=== PATIENT | female | born 1955 | race Caucasian/White ===

== ENCOUNTER 2019-12-12 11:14 | Emergency (ER) | payer OTHER ==
[2019-12-12] MEDS ORDERED: ONDANSETRON 4 MG/2 ML VIAL ONE (12:20)
[2019-12-12] MEDS ORDERED: MORPHINE 4 MG/ML SYR ONE (12:20)
--- NOTE | 2019-12-12 12:27 | RAD REPORT ---
EXAM DESCRIPTION: RAD - Wrist Left 3 View - 12/12/2019 12:21 pm CLINICAL HISTORY: Pain;Deformity Pain COMPARISON: No comparisons FINDINGS: Bones are mildly demineralized. Fracture of the distal radial and ulnar metaphysis these is seen. A styloid avulsion fracture is also present. The distal fracture fragments appear moderately dorsally angulated.
[2019-12-12] MEDS ORDERED: FENTANYL CITR 100 MCG/2 ML ONE (13:21)
[2019-12-12] MEDS ORDERED: propofoL 200 MG/20 ML VIAL IV ONE (13:22)
--- NOTE | 2019-12-12 14:31 | ER ---
Nurse's Notes [facility] Name: Vandana Soriano Age: 64 yrs Sex: Female : 1955 Arrival Date: 12/12/2019 Time: 11:16 Bed 7 Private MD: Cornelius Wiseman R Diagnosis: Distal left radius and ulnar fracture, closed, reduced Presentation: 12/11 11:50 Chief complaint: Patient states: was crushing a box and got her foot stuck in the box , iw fell back and injured her left wrist, no other injuries noted. Coronavirus screen: Proceed with normal triage. Patient denies a cough. Patient denies shortness of breath or difficulty breathing. Patient denies measured and/or subjective temperature greater than 100.4F prior to today's visit. Patient denies travel on a cruise ship or to a country the [facility] currently lists as an affected area. Patient denies contact with known and/or suspected case of COVID-19. Ebola Screen: Patient negative for fever greater than or equal to 101.5 degrees Fahrenheit, and additional compatible Ebola Virus Disease symptoms Patient denies exposure to infectious person. Patient denies travel to an Ebola-affected area in the 21 days before illness onset. No symptoms or risks identified at this time. Initial Sepsis Screen: Does the patient meet any 2 criteria? No. Patient's initial sepsis screen is negative. Does the patient have a suspected source of infection? No. Patient's initial sepsis screen is negative. Risk Assessment: Do you want to hurt yourself or someone else? Patient reports no desire to harm self or others. Onset of symptoms was December 12, 2019. 11:50 Method Of Arrival: Ambulatory iw 11:50 Acuity: LOIS 3 iw Historical: - Allergies: 11:53 No Known Allergies; iw - Home Meds: 11:53 unknown BP medicine [Active]; iw - PMHx: 11:53 Hypertension; iw - PSHx: 11:53 Tonsillectomy; ; cyst; iw - Immunization history:: Adult Immunizations not up to date. - Social history:: Smoking status: . Screenin:15 Abuse screen: Denies threats or abuse. Nutritional screening: No deficits noted. aa5 Tuberculosis screening: No symptoms or risk factors identified. Fall Risk Fall in past 12 months (25 points). IV access (20 points). Total Shah Fall Scale indicates High Risk Score (45 or more points). Fall prevention measures have been instituted. Side Rails Up X 2 Placed Close to Nursing Station. Assessment: 12:00 General: Appears uncomfortable, Behavior is calm, cooperative. Pain: Complains of pain aa5 in left wrist Pain does not radiate. Pain currently is 10 out of 10 on a pain scale. Quality of pain is described as burning, Pain began post fall. Denies head injury, denies LOC. Is continuous. Neuro: Level of Consciousness is awake, alert, obeys commands, Oriented to person, place, time, situation. Cardiovascular: Patient's skin is warm and dry. Respiratory: Airway is patent Respiratory effort is even, unlabored, Respiratory pattern is regular, symmetrical. GI: No signs and/or symptoms were reported involving the gastrointestinal system. : No signs and/or symptoms were reported regarding the genitourinary system. EENT: No signs and/or symptoms were reported regarding the EENT system. Derm: Skin is pink, warm \T\ dry. Musculoskeletal: Bony deformity noted of left wrist. 13:40 Reassessment: Conscious sedation consent signed by patient (see pt's chart) . aa5 13:46 Reassessment: Pt's O2 sat decreased to 84% RA during conscious sedation, Non-rebreather aa5 mask applied and O2 sat now 100%. . 13:58 Reassessment: Pt sleepy but easy to awake to verbal stimuli, pt is alert and oriented x aa5 4, equal and unlabored respirations, skin is pink/warm/dry. NSR on monitor.. 14:20 Reassessment: x-ray at bedside . aa5 15:02 Neuro: Level of Consciousness is awake, alert, obeys commands, Oriented to person, ls4 place, time, situation. Musculoskeletal: Circulation, motion, and sensation intact. Capillary refill < 3 seconds, Range of motion: limited in left wrist and left arm CMS INTACT DISTAL TO INJURY. Vital Signs: 11:50 BP 122 / 76; Pulse 85; Resp 16; Temp 97.1; Pulse Ox 99% on R/A; Weight 61.23 kg; Height iw 5 ft. 2 in. (157.48 cm); Pain 10/10; 13:00 BP 134 / 76; Pulse 64; Resp 16 S; Temp 98.0(TE); Pulse Ox 100% on R/A; aa5 13:58 BP 123 / 77; Pulse 68; Resp 16 S; Pulse Ox 100% on 2 lpm NC; aa5 14:58 BP 139 / 72; Pulse 79; Resp 14; Temp 98.1; Pulse Ox 100% on R/A; Pain 3/10; ls4 15:31 BP 138 / 63; Pulse 71; Resp 14; Temp 98.0(O); Pulse Ox 100% on R/A; Pain 3/10; ls4 11:50 Body Mass Index 24.69 (61.23 kg, 157.48 cm) iw ED Course: 11:16 Patient arrived in ED. ag5 11:16 Adam Machuca MD is Attending Physician. kdr 11:16 Cornelius Wiseman MD is Private Physician. ag5 11:52 Triage completed. iw 11:53 Arm band placed on. iw 12:00 Patient has correct armband on for positive identification. Bed in low position. Call aa5 light in reach. Side rails up X2. Pulse ox on. NIBP on. 12:03 Lanny Hartley RN is Primary Nurse. aa5 12:13 Inserted saline lock: 22 gauge in right antecubital area, using aseptic technique. aa5 12:23 Wrist Left (3 View) XRAY In Process Unspecified. EDMS 13:30 panel monitor on. aa5 14:00 Assist provider with reduction of left wrist using manipulation, Set up for procedure. aa5 Performed by Adam Machuca MD Immobilized with Volar splint Patient tolerated well. Conscious sedation (see Conscious sedation flow sheet). 14:05 Report given to ANNIA Lopez. aa5 14:24 Wrist Left (2 View) XRAY In Process Unspecified. EDMS 14:29 Torres Wills MD is Referral Physician. kdr 15:32 IV discontinued, intact, bleeding controlled, No redness/swelling at site. Pressure ls4 dressing applied. Administered Medications: 12:16 Drug: Zofran (Ondansetron) 4 mg Route: IVP; Site: right antecubital; aa5 12:18 Drug: morphine 4 mg Route: IVP; Site: right antecubital; aa5 13:42 Drug: fentaNYL (PF) 25 mcg {Note: see concious sedation flow sheet .} Route: IVP; Site: aa5 right antecubital; 14:10 Follow up: Response: No adverse reaction; Marked relief of symptoms ls4 13:44 Drug: Propofol 60 mg {Note: administered by Dr. Machuca (see conscious sedation flow aa5 sheet).} Route: IVP; Site: right antecubital; 15:03 Follow up: Response: No adverse reaction ls4 Outcome: 14:30 Discharge ordered by . kdr 15:32 Discharged to home via wheelchair, with family. ls4 15:32 Condition: good 15:32 Discharge instructions given to patient, Instructed on discharge instructions, follow up and referral plans. medication usage, safety practices, Demonstrated understanding of instructions, follow-up care, medications, Prescriptions given X 1. 15:32 Patient left the ED. ls4 Signatures: Dispatcher [employer] EDMS Adam Machuca MD MD kdr Williams, Irene, RN RN iw Lanny Hartley RN RN aa5 Jessica Waller RN RN ls4 Dejan Fried ag5 Corrections: (The following items were deleted from the chart) 11:53 11:50 Acuity: LOIS 4 iw iw 12:20 12:12 morphine 4 mg IVP in right antecubital aa5 aa5 12:20 12:12 Zofran (Ondansetron) 4 mg IVP in right antecubital aa5 aa5 12:20 12:20 Inserted saline lock: 22 gauge in right antecubital area, using aseptic aa5 technique. aa5 12:20 12:10 Inserted saline lock: 22 gauge in right antecubital area, using aseptic aa5 technique. aa5
--- NOTE | 2019-12-12 14:31 | EDPHYS ---
Physician Documentation [facility] Name: Vandana Soriano Age: 64 yrs Sex: Female : 1955 Arrival Date: 12/12/2019 Time: 11:16 Bed 7 Private MD: Cornelius Wiseman R ED Physician Adam Machuca HPI: 12/11 11:55 This 64 yrs old Female presents to ER via Ambulatory with complaints of Fall kdr Injury, Wrist Injury. 11:55 Details of fall: The patient fell from an upright position, while standing, while kdr walking. Onset: The symptoms/episode began/occurred suddenly, just prior to arrival. Associated injuries: The patient sustained Left wrist. Severity of symptoms: At their worst the symptoms were mild, moderate, in the emergency department the symptoms are unchanged. The patient has not experienced similar symptoms in the past. The patient has not recently seen a physician. Historical: - Allergies: 11:53 No Known Allergies; iw - Home Meds: 11:53 unknown BP medicine [Active]; iw - PMHx: 11:53 Hypertension; iw - PSHx: 11:53 Tonsillectomy; ; cyst; iw - Immunization history:: Adult Immunizations not up to date. - Social history:: Smoking status: . ROS: 11:55 Constitutional: Negative for fever, chills, and weight loss, Eyes: Negative for injury, kdr pain, redness, and discharge, ENT: Negative for injury, pain, and discharge, Neck: Negative for injury, pain, and swelling, Cardiovascular: Negative for chest pain, palpitations, and edema, Respiratory: Negative for shortness of breath, cough, wheezing, and pleuritic chest pain, Abdomen/GI: Negative for abdominal pain, nausea, vomiting, diarrhea, and constipation, Back: Negative for injury and pain, : Negative for injury, bleeding, discharge, and swelling, Skin: Negative for injury, rash, and discoloration, Neuro: Negative for headache, weakness, numbness, tingling, and seizure activity. Psych: Negative for depression, anxiety, suicide ideation, homicidal ideation, and hallucinations, Allergy/Immunology: Negative for hives, rash, and allergies, Endocrine: Negative for neck swelling, polydipsia, polyuria, polyphagia, and marked weight changes, Hematologic/Lymphatic: Negative for swollen nodes, abnormal bleeding, and unusual bruising. 11:55 MS/extremity: Positive for injury or acute deformity, decreased range of motion, pain, swelling, tenderness, of the left wrist. Exam: 11:55 Constitutional: This is a well developed, well nourished patient who is awake, alert, kdr and in no acute distress. 11:55 Musculoskeletal/extremity: ROM: limited active range of motion, limited passive range of motion, in the left wrist, limited active range of motion due to pain, limited passive range of motion due to pain, Circulation is intact in all extremities. Sensation intact. Joints: All joints are normal except the left wrist displays deformity, limited range of motion, pain at rest, painful range of motion, swelling, tenderness. Vital Signs: 11:50 BP 122 / 76; Pulse 85; Resp 16; Temp 97.1; Pulse Ox 99% on R/A; Weight 61.23 kg; Height iw 5 ft. 2 in. (157.48 cm); Pain 10/10; 13:00 BP 134 / 76; Pulse 64; Resp 16 S; Temp 98.0(TE); Pulse Ox 100% on R/A; aa5 13:58 BP 123 / 77; Pulse 68; Resp 16 S; Pulse Ox 100% on 2 lpm NC; aa5 14:58 BP 139 / 72; Pulse 79; Resp 14; Temp 98.1; Pulse Ox 100% on R/A; Pain 3/10; ls4 15:31 BP 138 / 63; Pulse 71; Resp 14; Temp 98.0(O); Pulse Ox 100% on R/A; Pain 3/10; ls4 11:50 Body Mass Index 24.69 (61.23 kg, 157.48 cm) iw MDM: 14:30 Patient medically screened. kdr 15:38 Data reviewed: vital signs, nurses notes, lab test result(s), radiologic studies. kdr Counseling: I had a detailed discussion with the patient and/or guardian regarding: the historical points, exam findings, and any diagnostic results supporting the discharge/admit diagnosis, radiology results, the need for outpatient follow up. 12/11 11:53 Order name: Wrist Left (3 View) XRAY; Complete Time: 15:33 kdr 12/11 14:08 Order name: Wrist Left (2 View) XRAY; Complete Time: 15:33 kdr 12/11 11:53 Order name: Volar Wrist Splint; Complete Time: 14:07 kdr 12/11 12:13 Order name: IV; Complete Time: 12:13 bp 12/11 14:09 Order name: Conscious Sedation; Complete Time: 14:08 aa5 Administered Medications: 12:16 Drug: Zofran (Ondansetron) 4 mg Route: IVP; Site: right antecubital; aa5 12:18 Drug: morphine 4 mg Route: IVP; Site: right antecubital; aa5 13:42 Drug: fentaNYL (PF) 25 mcg {Note: see concious sedation flow sheet .} Route: IVP; Site: aa5 right antecubital; 14:10 Follow up: Response: No adverse reaction; Marked relief of symptoms ls4 13:44 Drug: Propofol 60 mg {Note: administered by Dr. Machuca (see conscious sedation flow aa5 sheet).} Route: IVP; Site: right antecubital; 15:03 Follow up: Response: No adverse reaction ls4 Disposition: 12/12/19 14:30 Discharged to Home. Impression: Distal left radius and ulnar fracture, closed, reduced. - Condition is Stable. - Discharge Instructions: Forearm Fracture, Lice-xx-Byqu. - Prescriptions for Tylenol- Codeine #3 300-30 mg Oral Tablet - take 2 tablets by ORAL route every 6 hours As needed Take one or two tabs PO as needed for pain; 16 tablet. - Medication Reconciliation Form, Thank You Letter, Prescription Opioid Use form. - Follow up: Torres Wills MD; When: 1 - 2 days; Reason: If symptoms return, Further diagnostic work-up, Recheck today's complaints, Continuance of care, Re-evaluation by your physician. - Problem is new. - Symptoms have improved. Signatures: Dispatcher [employer] EDMS Adam Machuca MD MD kdr Williams, Irene, RN RN iw Lanny Hartley RN RN aa5 Ney Buenrostro RN RN bp Jessica Waller, RN RN ls4 Corrections: (The following items were deleted from the chart) 15:31 14:30 12/12/2019 14:30 Discharged to Home. Impression: Distal left radius and ulnar ls4 fracture, closed, reduced. Condition is Stable. Forms are Medication Reconciliation Form, Thank You Letter, Antibiotic Education, Prescription Opioid Use. Follow up: Torres Wills; When: 1 - 2 days; Reason: If symptoms return, Further diagnostic work-up, Recheck today's complaints, Continuance of care, Re-evaluation by your physician. Problem is new. Symptoms have improved. kdr 15:32 15:31 12/12/2019 14:30 Discharged to Home. Impression: Distal left radius and ulnar ls4 fracture, closed, reduced. Condition is Stable. Discharge Instructions: Forearm Fracture, [id number]-Qonz. Prescriptions for Tylenol-Codeine #3 300-30 mg Oral Tablet - take 2 tablets by ORAL route every 6 hours As needed Take one or two tabs PO as needed for pain; 16 tablet. and Forms are Medication Reconciliation Form, Thank You Letter, Prescription Opioid Use. Follow up: Torres Wills; When: 1 - 2 days; Reason: If symptoms return, Further diagnostic work-up, Recheck today's complaints, Continuance of care, Re-evaluation by your physician. Problem is new. Symptoms have improved. ls4
--- NOTE | 2019-12-12 14:35 | RAD REPORT ---
EXAM DESCRIPTION: RAD - Wrist Left 2 View - 12/12/2019 2:23 pm CLINICAL HISTORY: Radial fracture FINDINGS: A splint immobilizes previously described fractures of the distal radius and ulna
[2019-12-12 15:39] VITALS: O2SAT 100
[2019-12-12 15:43] VITALS: BP 138/63; TEMP 98
== END 2019-12-12 15:32 | disposition home or self-care (01) ==
LOC: ER 11:14
PROC: 0PSJXZZ Reposition Left Radius, External Approach (ICD-10-PCS; principal; 2019-12-12)
PROC: 0PSLXZZ Reposition Left Ulna, External Approach (ICD-10-PCS; 2019-12-12)
DX: S52.92XA Unspecified fracture of left forearm, initial encounter for closed fracture (principal); S52.202A Unspecified fracture of shaft of left ulna, initial encounter for closed fracture; W19.XXXA Unspecified fall, initial encounter; Y93.01 Activity, walking, marching and hiking; Y92.9 Unspecified place or not applicable; I10 Essential (primary) hypertension
CPT/HCPCS: 73110; 73100; 96375; 96374; 99285; 25415; J2704; J3010; J2405

== ENCOUNTER 2024-07-28 19:13 | Emergency (ER) | payer OTHER ==
--- OUTSIDE RECORDS SUMMARY | 2024-07-28 19:16 | XMS REPORT | Continuity of Care Document ---
Author Name Unknown Address [address] [place] [address] [facility] [address] [place] [address] Care Team Providers Care Hydraulic Press Operator Name Role Phone GI FREY Primary Care Physician Kristel chantelle Wills MD, Pedro Torres Attending Clinician [phone] PEDRO WILLS Attending Clinician Bettie martin Doctor Unassigned, [place] Attending Clinician U gia Nurse, [facility] General Surgery Attending Clinician U gia Wills MD, Pedro Torres Admitting Clinician [phone] PEDRO WILLS Admitting Clinician Bettie martin Payers Payer Name Policy Type Policy Number Effective Date Expirati on Date Source Allergies, Adverse Reactions, Alerts Allergy Name Allergy Type Status Severity Reaction(s) Onset Date Inactive Date Treating Clinician Comments Source NO KNOWN ALLERGIE S Drug Class Active [facility] Social History Social Habit Start Date Stop Date Quantity Comments Source History SDOH Alcohol Std Drinks [facility] History SDOH Alcohol Binge [facility] Sex Assigned At [facility] Exposure to SARS-CoV-2 (event) Not sure [facility] Alcohol intake 2019-12-17 00:00:00 2019-12-17 00:00:00 [facility] History SDOH Alcohol Frequency 2019-12-17 00:00:00 2019-12-17 00:00:00 1 [facility] Smoking Status Start Date Stop Date Source Former smoker 2019-12-17 00:00:00 2019-12-17 00:00:00 [facility] Medications Ordered Medication Name Filled Medication Name Start Date Stop Date Current Medication? Ordering Clinician Indication Dosage Frequency Signature (SIG) Comments Components Source olmesartan 40 mg tablet 12-19 16:09: 58 Yes 40mg Take 40 mg by mouth daily. [facility] vitamin C with kp hips (VITAMIN C) 1,000 mg tablet 12-19 16:09: 58 Yes 2000mg Take 2,000 mg by mouth daily. [facility] mv-min/iron /folic/calc ium/vitK (WOMEN'S 50 PLUS MULTIVIT-IR ON ORAL) 12-19 16:09: 58 Yes 1{tbl} Take 1 tablet by mouth daily. [facility] acetaminoph en (TYLENOL EXTRA STRENGTH) 500 mg tablet 12-19 16:09: 58 Yes 500mg Take 500 mg by mouth every 6 (six) hours as needed for Pain. [facility] acetaminoph en with codeine (TYLENOL-CO DEINE #3 ORAL) 12-19 16:09: 58 Yes 1{tbl} Take 1 tablet by mouth every 6 (six) hours as needed for Pain (scale 4-6). [facility] FENTanyl PF (SUBLIMAZE (PF)) injection 25 mcg 12-18 19:19: 28 Yes 25ug 25 mcg, Slow IV Push, Q5MIN PRN, 4 doses, Starting Tue12/19/19 at 1419, Until Discontinu ed, Routine, Pain (scale 4-6), PACU [facility] ondansetron (ZOFRAN (PF)) injection 4 mg 12-18 19:19: 28 12-18 19:28 :00 No 4mg 4 mg, Slow IV Push, PRN, 1 dose, Starting Tue12/19/19 at 1419, Until Tue12/19/19 at 1428, Routine, Nausea and Vomiting (N/V), PACU [facility] lactated ringers IV infusion 1,000 mL 12-18 15:45: 00 12-18 15:33 :00 No 1000mL at 20 mL/hr, 1,000 mL, IV Infusion, ONCE, 1 dose, Tue12/19/19 at 1045, Routine, DSU Pre-op [facility] ceFAZolin (ANCEF) 1,000 mg in NaCl 0.9% (NS) 50 mL MINI-BAG 12-18 15:33: 30 Yes 1000mg 1,000 mg, IV Piggyback, O.R. HOLDING ONCE, 1 dose, Starting Tue12/19/19 at 1033, Until Discontinu ed, 50 mL, DSU Pre-op
Reason for Anti-Infec tive: Surgical Prophylaxi s
Surgi jonna Prophylaxi s: Orthopaedi c
Durat ion of therapy: within 24 hours of surgery [facility] mv-min/iron /folic/calc ium/vitK (WOMEN'S 50 PLUS MULTIVIT-IR ON ORAL) 12-16 17:03: 22 Yes 1{tbl} Take 1 tablet by mouth daily. [facility] acetaminoph en (TYLENOL EXTRA STRENGTH) 500 mg tablet 12-16 17:03: 22 Yes 500mg Take 500 mg by mouth every 6 (six) hours as needed for Pain. [facility] acetaminoph en with codeine (TYLENOL-CO DEINE #3 ORAL) 12-16 17:03: 22 Yes 1{tbl} Take 1 tablet by mouth every 6 (six) hours as needed for Pain (scale 4-6). [facility] olmesartan 40 mg tablet 12-16 17:03: 21 Yes 40mg Take 40 mg by mouth daily. [facility] vitamin C with kp hips (VITAMIN C) 1,000 mg tablet 12-16 17:03: 21 Yes 2000mg Take 2,000 mg by mouth daily. [facility] Vital Signs Vital Name Observation Time Observation Value Comments Tramaine avalos Systolic blood pressure 2019-12-19 19:45:00 128 mm[Hg] [facility] Diastolic blood pressure 2019-12-19 19:45:00 75 mm[Hg] [facility] Heart rate 2019-12-19 19:35:00 86 /min [facility] Oxygen saturation in Arterial blood by Pulse oximetry 2019-12-19 19:35:00 98 /min [facility] Respiratory rate 2019-12-19 19:30:00 15 /min [facility] Body temperature 2019-12-19 19:00:00 36.39 [facility] Body height 2019-12-18 15:52:00 157.5 cm [facility] Body weight 2019-12-18 15:52:00 61 kg [facility] BMI 2019-12-18 15:52:00 24.59 kg/m2 [facility] Systolic blood pressure 2019-12-19 19:45:00 128 mm[Hg] [facility] Diastolic blood pressure 2019-12-19 19:45:00 75 mm[Hg] [facility] Heart rate 2019-12-19 19:35:00 86 /min [facility] Oxygen saturation in Arterial blood by Pulse oximetry 2019-12-19 19:35:00 98 /min [facility] Respiratory rate 2019-12-19 19:30:00 15 /min [facility] Body temperature 2019-12-19 19:00:00 36.39 [facility] Body height 2019-12-18 15:52:00 157.5 cm [facility] Body weight 2019-12-18 15:52:00 61 kg [facility] BMI 2019-12-18 15:52:00 24.59 kg/m2 [facility] Body temperature 2019-12-18 19:30:00 36.44 [facility] Body temperature 2019-12-18 19:30:00 36.44 [facility] Procedures Procedure Date / Time Performed Performing Clinicia n Source FL TIME OR (NON-REPORTABLE) 2019-12-19 18:54:29 Pedro Wills [facility] RADIUS AND ULNA ORIF 2019-12-19 17:15:00 Pedro Machado [facility] ASSIGNMENT OF BENEFITS 2019-12-19 12:49:17 Docto r Unassigned, [place] [facility] NOTICE OF PRIVACY PRACTICES 2019-12-17 15:00:57 Doctor Unassigned, [place] [facility] CONSENT/REFUSAL FOR DIAGNOSIS AND TREATMENT 2019-12-17 15:00:42 Doctor Unassigned, [place] [facility] ASSIGNMENT OF BENEFITS 2019-12-17 15:00:30 Docto r Unassigned, [place] [facility] NOTICE OF PRIVACY PRACTICES 2019-12-17 15:00:15 Doctor Unassigned, [place] [facility] CONSENT/REFUSAL FOR DIAGNOSIS AND TREATMENT 2019-12-17 14:59:59 Doctor Unassigned, [place] [facility] ASSIGNMENT OF BENEFITS 2019-12-17 14:59:43 Docto r Unassigned, [place] [facility] Encounters Start Date/Time End Date/Time Encounter Type Admission Type Attending [facility] Care Facility Care Department Encounter ID Source 2019-12-19 09:56:00 2019-12-19 15:25:00 Hospital Encounter Pedro Wills [facility] [id number] 2019-12-19 09:56:00 2019-12-19 15:25:00 Hospital Encounter [facility] [id number] [facility] 2019-12-19 09:56:00 2019-12-19 15:25:00 [id number] 2019-12-19 00:00:00 2019-12-19 00:00:00 Orders Only Doctor Unassigned, [place] [facility] [id number] 2019-12-19 00:00:00 2019-12-19 00:00:00 Orders Only Doctor Unassigned, [place] [facility] [id number] [facility] 2019-12-18 14:30:00 2019-12-18 14:30:00 Outpatient R [facility] [id number] [facility] 2019-12-18 14:20:39 2019-12-18 14:29:47 Nurse Visit Nurse, [facility] [id number] 2019-12-18 14:20:39 2019-12-18 14:29:47 Nurse Visit Nurse, [facility] Pedro Wills [facility] [id number] [facility] 2019-12-17 09:45:00 2019-12-17 09:45:00 Outpatient R PEDRO WILLS [facility] [id number] [facility] Results Test Description Test Time Test Comments Results Resul t Comments Source FL TIME OR (NON-REPORTABLE) 2019-12-19 18:56:14 These images do not require a Radiology diagnostic report. [facility]
[2024-07-28] MEDS ORDERED: CEFTRIAXONE 1000 MG/VIAL ONE (19:48)
[2024-07-28] MEDS ORDERED: ALBUTEROL 2.5 MG/3 ML NEB SOL ONE (19:48)
[2024-07-28] MEDS ORDERED: IPRATROPIUM BROM 0.5MG/2.5ML ONE (19:48)
[2024-07-28] MEDS ORDERED: METHYLPREDNISOLONE 125 MG INJ ONE (19:49)
[2024-07-28 19:52] LABS: SARS-CoV-2 Antigen CONTROL BLUE LINE VIS/BG OK; SARS-CoV-2 Antigen Rapid Res Negative (Negative)
[2024-07-28 19:52] LABS: Absolute Basophils 0.1 K/uL (0-0.5); Absolute Eosinophils 1.2 K/uL (0-0.5); Absolute Lymphocytes (CBC) 1.7 K/uL (0.7-4.9); Absolute Monocytes 0.6 K/uL (0.1-1.3); Absolute Neutrophil 6.4 K/uL (1.8-8.0); Basophils % 0.9 % (0-1.3); Eosinophils % 11.8 % (0-4.4); Hematocrit 38.6 % (36.0-45.0); Hemoglobin 12.9 g/dL (12.0-15.0); Lymphocytes % 17.5 % (15.3-44.8); MCH 31.1 pg (27.0-35.0); MCHC 33.4 g/dL (32.0-36.0); MCV 93.2 fL (80-100); MPV 7.2 fL (7.6-11.3); Monocytes % 5.6 % (3.3-12.3); Neutrophils % 64.2 % (41.7-73.7); Platelets 366 thou/uL (152-406); RBC Red Blood Cell Count 4.14 M/uL (3.86-4.86); Red Cell Distribution Width 13.2 % (12.1-15.2)
[2024-07-28 19:58] LABS: PT Prothrombin Time 12.5 SECONDS (9.4-12.5); PTT, Activated Partial Thromb 33.8 SECONDS (24.3-36.9); Protime INR 1.12
[2024-07-28 20:09] LABS: Albumin 4.2 g/dL (3.4-5.0); Anion Gap 13.7 mEq/L (5.0-15.0); Bilirubin Total 0.7 mg/dL (0.2-1.0); Globulin 4.2 g/dL (2.3-3.5); Potassium 3.7 mEq/L (3.5-5.1); Protein, Total 8.4 g/dL (6.4-8.2)
--- NOTE | 2024-07-28 20:53 | RAD REPORT ---
EXAM: Chest Single View HISTORY: COPD COMPARISON: 09/13/2014 FINDINGS: LUNGS/PLEURA: The lungs are clear. No pleural effusions or pneumothorax. No pulmonary edema. Apical s carring. Emphysema. MEDIASTINUM: The mediastinal silhouette is within normal limits. CARDIAC: The cardiac silhouette is within normal limits. UPPER ABDOMEN: No significant abnormality. BONES: No acute fracture. LINES/TUBES/OTHER: N/A IMPRESSION: Emphysema without evidence of superimposed acute process.
--- NOTE | 2024-07-28 21:12 | EDPHYS ---
Physician Documentation [facility] Name: Vandana Soriano Age: 69 yrs Sex: Female : 1955 Arrival Date: 07/28/2024 Time: 19:13 Bed 11 Private MD: ED Physician Pablo Nichole HPI: 07/28 19:24 This 69 yrs old Female presents to ER via Wheelchair with complaints of ec2 Shortness Of Breath. 19:24 Patient arrives today for evaluation of shortness of breath. Patient reports history of ec2 COPD, had not been taking her prescribed medications and nebulizers and albuterol inhaler. Patient reports she been having some cough and shortness of breath as well as decreased appetite and diarrhea. No vomiting.. Historical: - Allergies: 19:18 No Known Allergies; jj7 - PMHx: 19:18 Hypertension; Chronic obstructive lung disease; GERD; jj7 - PSHx: 19:19 section; jj7 - Immunization history:: Adult Immunizations up to date. - Infectious Disease History:: Denies. - Social history:: Smoking status: Patient/guardian denies using tobacco, the patient reports quitting approximately 20 years ago, Patient/guardian denies using alcohol, street drugs, IV drugs. ROS: 19:24 Constitutional: as per hpi ec2 Exam: 19:24 Constitutional: GEN: NAD Head: atraumatic Eyes: EOMI Ears: External ears are ec2 normal. CV: regular rate LUNGS: no respiratory distress, scattered wheezes noted. ABD: non-distended SKIN: no evidence of rashes MSK: no evidence of trauma Vital Signs: 19:15 BP 188 / 89; Pulse 106; Resp 21; Temp 97.5; Pulse Ox 96% on R/A; Weight 57.61 kg; jj7 Height 5 ft. 2 in. ; Pain 0/10; 20:00 BP 144 / 93; Pulse 108; Resp 24; Pulse Ox 98% on R/A; me1 21:00 BP 127 / 81; Pulse 106; Resp 20; Temp 98.6; Pulse Ox 94% on R/A; me1 19:15 Body Mass Index 23.23 (57.61 kg, 157.48 cm) [facility] 19:15 Pain Scale: Adult [facility] MDM: 19:17 Medical Screening Exam initiated ec2 19:24 Data reviewed: vital signs, nurses notes. ED course: Patient arrives today for ec2 shortness of breath. Examination is revealing for individual with occasional scattered wheeze appreciated. Will obtain a septic workup empirically treat with steroids as well as DuoNeb and give the patient ceftriaxone empirically. 20:28 ED course: EKG independently reviewed and interpreted by me, shows normal sinus rhythm, ec2 rate of 99, no acute ST segment elevations, intervals are nonactionable.. 21:10 ED course: On reassessment patient reports marked improvement in her respiratory ec2 status. Patient with improvement in tachycardia and work of breathing as well. Offered the patient inpatient hospitalization for COPD exacerbation versus outpatient management, patient states that she felt comfortable enough to wanted to trial outpatient management. Will discharge home, will prescribe her steroids and antibiotics and have her follow-up with PCP. Return precautions given.. 12 19:24 Order name: Blood Culture Adult (2) ec2 07/28 19:24 Order name: CBC with Diff; Complete Time: 20:01 ec2 07/28 19:24 Order name: CMP; Complete Time: 20:52 ec2 07/28 19:24 Order name: Lactate w/ 2H reflex if indic.; Complete Time: 20:52 ec2 07/28 19:24 Order name: Protime (+inr); Complete Time: 20:01 ec2 07/28 19:24 Order name: Ptt, Activated; Complete Time: 20:01 ec2 07/28 19:24 Order name: Influenza Screen (a \T\ B); Complete Time: 20:01 ec2 07/28 19:24 Order name: SARS RAPID; Complete Time: 20:01 ec2 07/28 19:24 Order name: Chest Single View XRAY; Complete Time: 20:58 ec2 07/28 19:24 Order name: EKG; Complete Time: 19:24 ec2 07/28 19:24 Order name: Accucheck; Complete Time: 20:17 ec2 07/28 19:24 Order name: Cardiac monitoring; Complete Time: 20:17 ec2 07/28 19:24 Order name: EKG - Nurse/Tech; Complete Time: 20:28 ec2 07/28 19:24 Order name: IV Saline Lock - Large Bore; Complete Time: 19:45 ec2 07/28 19:24 Order name: Labs collected and sent; Complete Time: 19:45 ec2 07/28 19:24 Order name: O2 Per Protocol; Complete Time: 19:45 ec2 07/28 19:24 Order name: O2 Sat Monitoring; Complete Time: 19:45 ec2 07/28 19:24 Order name: Vital Signs; Complete Time: 19:45 ec2 Administered Medications: 19:55 Drug: DuoNeb Nebulize (3:1) (2.5 mg - 0.5 mg) 3 ml Nebulizer once Route: Nebulizer; me1 20:17 Follow up: Response: No adverse reaction; Wheezing diminished me1 19:55 Drug: MethylPrednisoLONE IVP 125 mg IVP once Route: IVP; Site: right antecubital; me1 20:17 Follow up: Response: No adverse reaction me1 19:55 Drug: Rocephin IV 1 grams IV at calculated rate once; Given slow IV push per pharmacy me1 instructions Route: IV; Rate: calculated rate; Site: right antecubital; 20:18 Follow up: Response: No adverse reaction; IV Status: Completed infusion me1 21:17 Drug: Albuterol AEPB Inhaler 90 mcg/actuation Aerosol 90 mcg/actuation 2 inhalations me1 Inhalation once Route: Inhalation; 21:19 Follow up: Response: No adverse reaction; Wheezing diminished me1 Disposition Summary: 07/28/24 21:11 Discharge Ordered Notes: Location: Home ec2 Condition: Stable ec2 Diagnosis - COPD/ Chronic obstructive pulmonary disease with (acute) exacerbation ec2 Followup: ec2 - With: Private Physician - When: - Reason: Recheck today's complaints Discharge Instructions: - Discharge Summary Sheet ec2 - Chronic Obstructive Pulmonary Disease Exacerbation ec2 Forms: - Medication Reconciliation Form ec2 - Antibiotic Education ec2 - Prescription Opioid Use ec2 - Patient Portal Instructions ec2 - Leadership Thank You Letter ec2 Prescriptions: - Augmentin 875-125 mg Oral Tablet - take 1 tablet ORAL route every 12 hours for 10 days; 20 tablet; Refills: 0, ec2 Product Selection Permitted - Prednisone 20 mg Oral Tablet - take 2 tablets ORAL route once daily for 5 days; 10 tablet; Refills: 0, Product ec2 Selection Permitted Signatures: Dispatcher [employer] Simba Falcon RN RN jj7 Teresa Echols RN RN me1 Pablo Nichole, MD ec2
--- NOTE | 2024-07-28 21:12 | ER ---
Nurse's Notes [facility] Name: Vandana Soriano Age: 69 yrs Sex: Female : 1955 Arrival Date: 07/28/2024 Time: 19:13 Bed 11 Private MD: Diagnosis: COPD/ Chronic obstructive pulmonary disease with (acute) exacerbation Presentation: 07/28 19:15 Chief complaint: Patient states: SOB X1 WEEK GOTTEN WORSE IN THE LAST 2 DAYS. COPD. HAS kolby BEEN USING HER SON'S ALBUTEROL INHALER WITH NO RELIEF. Coronavirus screen: At this time, the client does not indicate any symptoms associated with coronavirus-19. Ebola Screen: No symptoms or risks identified at this time. Initial Sepsis Screen: Does the patient meet any 2 criteria? HR > 90 bpm. Yes Does the patient have a suspected source of infection? No. Patient's initial sepsis screen is negative. Risk Assessment: Do you want to hurt yourself or someone else? Patient reports no desire to harm self or others. Onset of symptoms was July 22, 2024. 19:15 Method Of Arrival: Wheelchair j 19:15 Acuity: LOIS 3 jj7 Triage Assessment: 19:19 General: Appears in no apparent distress. uncomfortable, Behavior is calm, cooperative, jj7 appropriate for age. Pain: Denies pain. Respiratory: Reports. 20:28 Respiratory: Onset: The symptoms/episode began/occurred about a week ago, the patient me1 has moderate shortness of breath. Historical: - Allergies: 19:18 No Known Allergies; jj7 - PMHx: 19:18 Hypertension; Chronic obstructive lung disease; GERD; jj7 - PSHx: 19:19 section; jj7 - Immunization history:: Adult Immunizations up to date. - Infectious Disease History:: Denies. - Social history:: Smoking status: Patient/guardian denies using tobacco, the patient reports quitting approximately 20 years ago, Patient/guardian denies using alcohol, street drugs, IV drugs. Screenin:56 [facility] ED Fall Risk Assessment (Adult) History of falling in the last 3 months, me1 including since admission No falls in past 3 months (0 pts) Confusion or Disorientation No (0 pts) Intoxicated or Sedated No (0 pts) Impaired Gait No (0 pts) Mobility Assist Device Used No (0 pt) Altered Elimination No (0 pt) Score/Fall Risk Level 0 - 2 = Low Risk Maintained a safe environment, Provided non-skid footwear, Hourly rounding (assess needs \T\ fall precautionary measures) done. Abuse screen: Denies threats or abuse. Nutritional screening: No deficits noted. Tuberculosis screening: No symptoms or risk factors identified. Assessment: 19:56 General: Appears comfortable, well groomed, well developed, well nourished, Behavior is me1 calm, cooperative, appropriate for age, Reports SOB X1 WEEK GOTTEN WORSE IN THE LAST 2 DAYS. COPD. HAS BEEN USING HER SON'S ALBUTEROL INHALER WITH NO RELIEF. Pain: Denies pain. Neuro: Level of Consciousness is awake, alert, obeys commands, Oriented to person, place, time, situation, Appropriate for age. Cardiovascular: Patient's skin is warm and dry. Respiratory: Airway is patent Respiratory effort is even, labored, using tripod position, Respiratory pattern is regular, tachypnea Breath sounds are diminished bilaterally. GI: No signs and/or symptoms were reported involving the gastrointestinal system. : No signs and/or symptoms were reported regarding the genitourinary system. EENT: No signs and/or symptoms were reported regarding the EENT system. Derm: Skin is intact, is healthy with good turgor, Skin is pink, warm \T\ dry. Musculoskeletal: No signs and/or symptoms reported regarding the musculoskeletal system. Circulation, motion, and sensation intact. Range of motion: intact in all extremities. 20:27 Cardiovascular: Rhythm is sinus rhythm. wi1 Vital Signs: 19:15 BP 188 / 89; Pulse 106; Resp 21; Temp 97.5; Pulse Ox 96% on R/A; Weight 57.61 kg; 7 Height 5 ft. 2 in. ; Pain 0/10; 20:00 BP 144 / 93; Pulse 108; Resp 24; Pulse Ox 98% on R/A; me1 21:00 BP 127 / 81; Pulse 106; Resp 20; Temp 98.6; Pulse Ox 94% on R/A; me1 19:15 Body Mass Index 23.23 (57.61 kg, 157.48 cm) [facility] 19:15 Pain Scale: Adult [facility] ED Course: 19:15 Patient arrived in ED. im 19:17 Pablo Nichole MD is Attending Physician. ec2 19:18 Triage completed. jj7 19:21 Arm band placed on right wrist. jj7 19:22 Jackelyn Xie, RN is Primary Nurse. kc6 19:42 Initial lab(s) drawn, by wi, sent to lab. First set of blood cultures drawn by me. me1 19:45 Inserted saline lock: 22 gauge in right antecubital area, using aseptic technique. me1 19:45 Blood Culture Adult (2) Sent. me1 19:45 CBC with Diff Sent. me1 19:45 CMP Sent. me1 19:45 Lactate w/ 2H reflex if indic. Sent. me1 19:45 Protime (+inr) Sent. me1 19:45 Ptt, Activated Sent. me1 19:55 Second set of blood cultures drawn by me. me1 19:56 Patient has correct armband on for positive identification. Bed in low position. Call me1 light in reach. Side rails up X2. Provided Education on: POC. Verbalized understanding.. Client placed on continuous cardiac and pulse oximetry monitoring. NIBP monitoring applied. threat monitoring analyst on. Pulse ox on. NIBP on. 19:56 No provider procedures requiring assistance completed. me1 20:28 EKG done, by ED staff, reviewed by Pablo Nichole MD. me1 20:40 Chest Single View XRAY In Process Unspecified. EDMS 21:19 IV discontinued, intact, bleeding controlled, No redness/swelling at site. Pressure me1 dressing applied. Administered Medications: 19:55 Drug: DuoNeb Nebulize (3:1) (2.5 mg - 0.5 mg) 3 ml Nebulizer once Route: Nebulizer; me1 20:17 Follow up: Response: No adverse reaction; Wheezing diminished me1 19:55 Drug: MethylPrednisoLONE IVP 125 mg IVP once Route: IVP; Site: right antecubital; me1 20:17 Follow up: Response: No adverse reaction me1 19:55 Drug: Rocephin IV 1 grams IV at calculated rate once; Given slow IV push per pharmacy me1 instructions Route: IV; Rate: calculated rate; Site: right antecubital; 20:18 Follow up: Response: No adverse reaction; IV Status: Completed infusion me1 21:17 Drug: Albuterol AEPB Inhaler 90 mcg/actuation Aerosol 90 mcg/actuation 2 inhalations me1 Inhalation once Route: Inhalation; 21:19 Follow up: Response: No adverse reaction; Wheezing diminished me1 Medication: 19:56 VIS not applicable for this client. me1 Outcome: 21:11 Discharge ordered by . ec2 21:19 Discharged to home via wheelchair, with family, me1 21:19 Condition: stable 21:19 Discharge instructions given to patient, family, Instructed on discharge instructions, follow up and referral plans. medication usage, Demonstrated understanding of instructions, follow-up care, medications, Prescriptions given X 2, 21:26 Patient left the ED. me1 Signatures: Dispatcher [employer] Jackelyn Haro RN RN [id number] Simba Mccullough RN RN jj7 Maryana Arana Michelle, RN RN me1 Pablo Nichole MD MD ec2 Corrections: (The following items were deleted from the chart) 19:56 19:15 Chief complaint: Patient states: SOB X1 WEEK GOTTEN WORSE IN THE LAST 2 DAYS. me1 COPD. HAS BEEN USING HER SON'S ALBUTEROL INHALER WITH NO RELIEF jj7
[2024-07-28] MEDS ORDERED: ALBUTEROL INHALER 200 PUFF/6.7 GM IH ONE (21:17)
[2024-07-29 03:09] VITALS: BP 127/81; TEMP 98.6; O2SAT 94
== END 2024-07-28 21:26 | disposition home or self-care (01) ==
LOC: ER 19:13
DX: J44.1 Chronic obstructive pulmonary disease with (acute) exacerbation (principal); I10 Essential (primary) hypertension; Z11.52 Encounter for screening for COVID-19
CPT/HCPCS: 96365; 87040 ×2; 85025; 36415; 85610; 83605; 85730; 80053; 87804 ×2; 71045; 96375; 99285; 87811; J7613; J7644; J2919; J0696